=== PATIENT | female | born 1955 | race Two or more races ===

== ENCOUNTER 2017-03-11 17:32 | Emergency (ER) | payer SELFPAY ==
[~2017-03-11] VITALS: Ht 165.1 cm; Wt 79.4 kg
[2017-03-11 17:46] VITALS: BP 157/100
== END 2017-03-11 18:29 | disposition left against medical advice (07) ==
LOC: ER 17:38
DX: R07.89 Other chest pain (principal); Z53.21 Procedure and treatment not carried out due to patient leaving prior to being seen by health care provider; V49.49XA Driver injured in collision with other motor vehicles in traffic accident, initial encounter; Y93.89 Activity, other specified; Y99.8 Other external cause status; Y92.410 Unspecified street and highway as the place of occurrence of the external cause